=== PATIENT | male | born 1980 | race Caucasian/White ===

== ENCOUNTER 2021-09-14 10:04 | Emergency (ER) | payer OTHER ==
--- NOTE | 2021-09-14 10:30 | ED Physician Documentation ---
PD HPI UPPER EXT INJURY - Stated complaint Stated Complaint: L HAND INJ,LAC - Chief complaint Chief Complaint: Laceration - History obtained from History obtained from: Patient - History of Present Illness Location: Left, Hand (thenar area) Type of injury: Laceration (accidental slice with knife while cutting rope at work. Lac to the left thenar area. Pain with thumb abduction and flexion, but able to. 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 No: Numbness Similar symptoms before: Has not had sx before Recently seen: Not recently seen Review of Systems Skin: reports: Laceration (s) Neurologic: reports: Focal weakness (feels slight weak but mostly hurting with some thumb movement.). denies: Numbness PD PAST MEDICAL HISTORY - Past Medical History Past Medical History: No - Past Surgical History Past Surgical History: No - Present Medications Home Medications: Ambulatory Orders Medication Instructions Recorded Confirmed No Known Home Medications 09/14/21 09/14/21 - Allergies Allergies/Adverse Reactions: Allergies Allergy/AdvReac Type Severity Reaction Status Date / Time No Known Drug Allergies Allergy Verified 09/14/21 10:17 - Social History Does the pt smoke?: No Smoking Status: Never smoker Does the pt drink ETOH?: Yes ETOH Use: Beer Does the pt have substance abuse?: No - Immunizations Immunizations are current?: No PD ED PE NORMAL - Vitals Vital signs reviewed: Yes - General General: Alert and oriented X 3, No acute distress, Well developed/nourished - Derm Derm: Normal color, Warm and dry - Extremities Extremities: Other - Neuro Neuro: Alert and oriented X 3, No motor deficit (he has movement of thumb in all directions. Pains with abduction and flexion. Normal sensation, color and cap refill. ), No sensory deficit, Normal speech Results - Vitals Vitals: Vital Signs - 24 hr 09/14/21 09/14/21 10:09 11:45 Temperature 36.5 C 36.7 C Heart Rate 81 80 Respiratory 16 16 Rate Blood Pressure 144/94 H 140/78 H O2 Saturation 95 96 Oxygen O2 Source Room air Procedures - Laceration (location) left thenar area base of thumb Length in cm: 4 Wound type: Linear, Into muscle, Clean Neurovascular status: Sensory intact, Motor intact, Vascular intact Tendon involvement: Tendon intact Anesthesia: Marcaine 0.5% Wound preparation: Irrigated copiously NS, Wound explored, To the base Deep layer closure: Vicryl, size #-0 - enter number (4), # sutures - enter number (2) Skin layer closure: Nylon, Running, Size #-0 - enter number (4), Sutures - enter # (9) Other: Patient tolerated well, No complications, Neurovascular intact, Dressing applied, Tetanus UTD PD MEDICAL DECISION MAKING - ED course Complexity details: considered differential (thumb lac at thenar area. Just to muscle level and hurts with movement. Can provide splint for thumb to protect as healing. ), d/w patient Departure - Departure Disposition: 01 Home, Self Care Clinical Impression: Hand laceration Qualifiers: Encounter type: initial encounter Foreign body presence: without foreign body Laterality: left Qualified Code(s): S61.412A - Laceration without foreign body of left hand, initial encounter Condition: Stable Record reviewed to determine appropriate education?: Yes Instructions: ED Laceration Hand Print Language: Prydeinig Comments: It is okay to wash and shower. Clean off the wound twice a day with soap and water, or peroxide and water. Apply some antibiotic ointment to it to keep it moist. Also to watch for signs of infection such as purulence, redness or increasing pain. Return to your primary care or the ER at the specified time for suture removal. Suture removal 10 to 14 days. Use the thumb and wrist splint when working or activity to protect movement of the thumb as it does look like you just mildly cut into the muscle in that area. This should heal with being just protected and time. Simple use of the thumb and hand are okay but use the splint to protect it when being more active. Tylenol ibuprofen if needed for pains. Forms: Activity restrictions Discharge Date/Time: 09/14/21 11:45
[2021-09-14] MEDS: LIDOCAINE 1%-EPI 1:100000 20 ML MDV SUBQ STA (10:40)
[2021-09-14] MEDS: IBUPROFEN 600 MG TABLET PO STA (11:21)
[2021-09-14 11:54] VITALS: BP 140/78
== END 2021-09-14 11:45 | disposition home or self-care (01) ==
LOC: ED 10:04
DX: S61.412A Laceration without foreign body of left hand, initial encounter (principal); W26.0XXA Contact with knife, initial encounter; Y99.0 Civilian activity done for income or pay
CPT/HCPCS: 12002; 99282; A9270

== ENCOUNTER 2021-10-01 10:02 | Emergency (ER) | payer OTHER ==
[2021-10-01 10:06] VITALS: BP 134/88
--- NOTE | 2021-10-01 10:24 | ED Physician Documentation ---
History of Present Illness - Stated complaint Stated Complaint: LT HAND STITCH REMOVAL - Chief complaint Chief Complaint: General - History obtained from History obtained from: Patient - Additonal information Additional information: 9 sutures placed in the left hand September 14. Here simply for suture removal. No complaints or issues or healing problems. PD PAST MEDICAL HISTORY - Past Surgical History Past Surgical History: No - Present Medications Home Medications: Ambulatory Orders Medication Instructions Recorded Confirmed No Known Home Medications 09/14/21 10/01/21 - Allergies Allergies/Adverse Reactions: Allergies Allergy/AdvReac Type Severity Reaction Status Date / Time No Known Drug Allergies Allergy Verified 10/01/21 10:06 - Social History Does the pt smoke?: No Smoking Status: Never smoker Does the pt drink ETOH?: Yes Does the pt have substance abuse?: No - Immunizations Immunizations are current?: No PD ED PE NORMAL - Vitals Vital signs reviewed: Yes - General General: Alert and oriented X 3, No acute distress - Extremities Extremities: Other (Healing incision the left hand and thenar musculature with a running suture in place. No dehiscence or signs of infection. Sutures removed without issue during exam and a bandage was placed.) - Neuro Neuro: Alert and oriented X 3, Normal speech Results - Vitals Vitals: Vital Signs - 24 hr 10/01/21 10:05 Temperature 36.0 C L Heart Rate 63 Respiratory 16 Rate Blood Pressure 134/88 H O2 Saturation 100 Oxygen O2 Source Room air Departure - Departure Disposition: 01 Home, Self Care Clinical Impression: Visit for suture removal Condition: Stable
== END 2021-10-01 10:34 | disposition home or self-care (01) ==
LOC: ED 10:02
DX: S61.412D Laceration without foreign body of left hand, subsequent encounter (principal); X58.XXXA Exposure to other specified factors, initial encounter

== ENCOUNTER 2022-07-12 17:22 | Inpatient (IN) | payer SELFPAY ==
[2022-07-12 18:22] LABS: BASOPHILS % (AUTO) 0.3 %; EOSINOPHILS # (AUTO) 0.1 10^3/uL (0.0-0.7); EOSINOPHILS % (AUTO) 0.5 %; HCT - HEMATOCRIT 48.9 % (42.0-52.0); HGB - HEMOGLOBIN 16.9 g/dL (14.0-18.0); LYMPHOCYTES # (AUTO) 0.5 10^3/uL (1.5-3.5); LYMPHOCYTES % (AUTO) 5.1 %; MEAN CORPUSCULAR HGB CONC 34.6 g/dL (32.0-36.0); MEAN CORPUSCULAR VOLUME 95.5 fL (80.0-94.0); MEAN PLATELET VOLUME 10.8 fL (7.4-11.4); MONOCYTES # (AUTO) 0.5 10^3/uL (0.0-1.0); MONOCYTES % (AUTO) 4.9 %; NEUTROPHILS # (AUTO) 8.7 10^3/uL (1.5-6.6); PLT - PLATELET COUNT 143 10^3/uL (130-450); RED BLOOD COUNT 5.12 10^6/uL (4.70-6.10); RED CELL DISTRIBUTION WIDTH 11.7 % (12.0-15.0); WHITE BLOOD COUNT 9.8 x10^3/uL (4.8-10.8)
[2022-07-12 18:35] LABS: ALBUMIN 4.3 g/dL (3.2-5.5); ALBUMIN/GLOBULIN RATIO 1.1 (1.0-2.2); BILIRUBIN,TOTAL 1.2 mg/dL (0.2-1.0); CALCIUM 9.5 mg/dL (8.5-10.3); CREATININE 0.8 mg/dL (0.6-1.2); POTASSIUM 3.7 mmol/L (3.5-5.0); TOTAL PROTEIN 8.1 g/dL (6.7-8.2)
[2022-07-12] MEDS ORDERED: iohexoL-300 100 ML VIAL ONE (19:03)
[2022-07-12] MEDS ORDERED: ONDANSETRON 4 MG/2 ML VIAL IVP STA (19:05)
[2022-07-12] MEDS ORDERED: HYDROmorphone 1 MG/ML CARPUJECT IVP STA (19:05)
[2022-07-12] MEDS ORDERED: SODIUM CHLORIDE 0.9% 1,000 ML IV STA (19:05)
--- NOTE | 2022-07-12 19:36 | ED Physician Documentation ---
History of Present Illness - Stated complaint Stated Complaint: ABD PX - Chief complaint Chief Complaint: Abd Pain - History obtained from History obtained from: Patient, Family - History of Present Illness Pain level max: 9 Pain level now: 9 - Additonal information Additional information: 41-year-old Uzbek-speaking male presents to the emergency department with his family. He started having abdominal pain yesterday, nausea, vomiting last night. Has not had a bowel movement today. He states he has not urinated much. He complains of diffuse abdominal pain. He usually drinks a sixpack of beers per night. He is not on any medications at home. There has been no blood in the emesis. No fevers. No chills. Nothing makes it better or worse. marking clerk was used for all interactions. Review of Systems Constitutional: denies: Fever Cardiac: denies: Chest pain / pressure, Palpitations Respiratory: denies: Cough GI: denies: Vomiting PD PAST MEDICAL HISTORY - Past Medical History Past Medical History: No - Past Surgical History Past Surgical History: No - Present Medications Home Medications: Ambulatory Orders Medication Instructions Recorded Confirmed No Known Home Medications 09/14/21 10/01/21 - Allergies Allergies/Adverse Reactions: Allergies Allergy/AdvReac Type Severity Reaction Status Date / Time No Known Drug Allergies Allergy Verified 07/12/22 17:54 - Living Situation Living Situation: reports: With family Living Arrangement: reports: At home - Social History Does the pt smoke?: No Smoking Status: Never smoker Does the pt drink ETOH?: Yes ETOH Use: Beer Does the pt have substance abuse?: No - Immunizations Immunizations are current?: No PD ED PE NORMAL - Vitals Vital signs reviewed: Yes - General General: Alert and oriented X 3, No acute distress - HEENT HEENT: PERRL, Moist mucous membranes - Neck Neck: Supple, no meningeal sign - Cardiac Cardiac: RRR, No murmur - Respiratory Respiratory: No respiratory distress, Clear bilaterally - Abdomen Abdomen: Other (Diffusely tender to palpation. Positive rebound and guarding.) - Back Back: No CVA TTP, No spinal TTP - Derm Derm: Warm and dry, No rash - Extremities Extremities: No edema, No calf tenderness / cord - Neuro Neuro: Alert and oriented X 3 - Psych Psych: Normal mood, Normal affect Results - Vitals Vitals: Vital Signs - 24 hr 07/12/22 07/12/22 07/12/22 17:51 19:55 20:51 Temperature 37.4 C 37.3 C Heart Rate 77 88 81 Respiratory 18 18 18 Rate Blood Pressure 143/90 H 116/75 122/82 H O2 Saturation 99 99 99 Oxygen O2 Source Room air - Labs Labs: Laboratory Tests 07/12/22 07/12/22 07/12/22 18:15 18:15 19:59 WBC 9.8 RBC 5.12 Hgb 16.9 Hct 48.9 MCV 95.5 H MCH 33.0 H MCHC 34.6 RDW 11.7 L Plt Count 143 MPV 10.8 Neut # (Auto) 8.7 H Lymph # (Auto) 0.5 L [place] # (Auto) 0.5 Eos # (Auto) 0.1 Baso # (Auto) 0.0 Absolute Nucleated RBC 0.00 Nucleated RBC % 0.0 Sodium 136 Potassium 3.7 Chloride 98 L Carbon Dioxide 29 Anion Gap 9.0 BUN 8 Creatinine 0.8 Estimated GFR (MDRD) 106 Glucose 118 H Calcium 9.5 Total Bilirubin 1.2 H AST 20 ALT 24 Alkaline Phosphatase 79 Total Protein 8.1 Albumin 4.3 Globulin 3.8 Albumin/Globulin Ratio 1.1 Lipase 35 SARS-CoV-2 (PCR) NOT DETECTED - Rads (name of study) CT abdomen pelvis Radiology: Final report received, See rad report PD Medical Decision Making - ED course Complexity details: reviewed results, re-evaluated patient, considered differential, d/w patient, d/w family, d/w webmethods consultant Reviewed Lab Results: CBC and ER abdominal panel did not show any significant abnormalities. ED course: CT abdomen pelvis shows an acute appendicitis, possible perforation. Discussed the case with Dr. Jeffers, general surgery on-call. He came and evaluated the patient in the emergency department. We reviewed the results. He will take the patient to the operating room for appendicitis. IV Zosyn given. IV Dilaudid given. Pain well controlled. This document was made in part using voice recognition software. While efforts are made to proofread this document, sound alike and grammatical errors may occur. Departure - Departure Disposition: ED Transfer to [facility] Clinical Impression: Perforated appendicitis Condition: Stable
[2022-07-12] MEDS ORDERED: PIPERACILLIN/TAZOBACTAM 3.375 GM in SODIUM CHLORIDE 0.9% MINIBAG 100 ML IV STA (19:41)
[2022-07-12] MEDS ORDERED: iohexoL-300 100 ML VIAL IVP ONE (19:50)
--- NOTE | 2022-07-12 20:05 | CT Report ---
PROCEDURE: ABDOMEN/PELVIS W INDICATIONS: diffuse abd pain x24 hours CONTRAST: 100 ML OMNI 300 TECHNIQUE: After the administration of intravenous contrast, 5 mm thick sections acquired from the diaphragms to the symphysis. 5 mm thick coronal and sagittal reformats were acquired. For radiation dose reducti on, the following was used: automated exposure control, adjustment of mA and/or kV according to alicia ent size. COMPARISON: None. FINDINGS: Included portion of the lung bases clear. Normal CT appearance of the liver, spleen, gallbladder, luu creas, adrenal glands, and kidneys. Dilated and fluid-filled appendix with diffuse wall thickening and adjacent inflammatory changes. The re is also significant free fluid adjacent to the appendix and in the retrovesical space. Findings ar e consistent with appendicitis and may represent ruptured appendicitis. Bowel is otherwise normal. No acute osseous finding. IMPRESSION: Acute appendicitis with possible ruptured appendicitis. Reviewed by: Jamie Singer MD on 07/12/2022 8:04 PM PST Approved by: Jamie Singer MD on 07/12/2022 8:04 PM PST Station ID: [id number]
--- NOTE | 2022-07-12 20:54 | ANESTHESIA ---
Pre-Anesthesia VS, & Labs - Diagnosis acute appendicitis/ruptured appendix - Procedure lap appy Vital Signs: Temp Pulse Resp BP Pulse Ox O2 Flow Rate 37.3 C 81 18 122/82 H 99 07/12/22 19:55 07/12/22 20:51 07/12/22 20:51 07/12/22 20:51 07/12/22 20:51 Height: 5 ft 8 in Weight (kg): 75.75 kg Body Mass Index: 25.4 BMI Classification: Overweight - NPO >8 hours Last Food Intake: potatoes at 1pm - Lab Results Current Lab Results: Laboratory Tests 07/12/22 18:15: Sodium 136, Potassium 3.7, Chloride 98 L, Carbon Dioxide 29, Anion Gap 9.0, BUN 8, Creatinine 0.8, Estimated GFR (MDRD) 106, Glucose 118 H, Calcium 9.5, Total Bilirubin 1.2 H, AST 20, ALT 24, Alkaline Phosphatase 79, Total Protein 8.1, Albumin 4.3, Globulin 3.8, Albumin/Globulin Ratio 1.1, Lipase 35 07/12/22 18:15: WBC 9.8, RBC 5.12, Hgb 16.9, Hct 48.9, MCV 95.5 H, MCH 33.0 H, MCHC 34.6, RDW 11.7 L, Plt Count 143, MPV 10.8, Neut # (Auto) 8.7 H, Lymph # (Auto) 0.5 L, [place] # (Auto) 0.5, Eos # (Auto) 0.1, Baso # (Auto) 0.0, Absolute Nucleated RBC 0.00, Nucleated RBC % 0.0 Lab results reviewed: Yes Fish Bones: 07/12/22 18:15 07/12/22 18:15 Home Medications and Allergies Active Medications Sodium Chloride (Normal Saline 0.9%) 1,000 mls @ 150 mls/hr IV .Q6H40M STA Stop: 07/13/22 01:44 Last Infusion: 07/12/22 20:31 Dose: 150 mls/hr No Known Home Medications 09/14/21 Allergies/Adverse Reactions: Allergies Allergy/AdvReac Type Severity Reaction Status Date / Time No Known Drug Allergies Allergy Verified 07/12/22 17:54 Anes History & Medical History - Anesthetic History Family history of Anesthesia Complications: Denies Family history of Malignant Hyperthermia: Denies - Medical History Cardiovascular: reports: None Pulmonary: reports: None Gastrointestinal: reports: None Urinary: reports: None Neuro: reports: None Musculoskeletal: reports: None Endocrine/Autoimmune: reports: None Blood Disorders: reports: None Skin: reports: None Smoking Status: Never smoker Psychosocial: reports: Alcohol (drinks beer daily) History of Cancer?: No Other Past Medical History: ETOH abuse Exam General: Alert, Oriented x3, Cooperative, No acute distress Dental: Poor dentition (prominent incisors) Mouth Openin Fingerbreadth Neck Mobility: Normal Mallampati classification: II Thyromental Distance: 4-6 cm Mental/Cognitive Status: Alert/Oriented X3, Normal for patient Plan Anesthesia Type: General Consent for Procedure(s) Verified and Reviewed: Yes Code Status: Attempt Resuscitation ASA classification: 2-Mild systemic disease Is this case an emergency?: Yes
--- NOTE | 2022-07-12 21:24 | HISTORY & PHYSICAL EXAMINATION ---
Chief Complaint - Chief Complaint Chief Complaint: abdominal pain History of Present Illness - Admitted From Admitted From:: ED - History Obtained From Records Reviewed: yes History obtained from: pt Exam Limitations: drift miner used - History of Present Illness HPI Comment/Other: abdominal pain and nausea/ vomiting for 36 hours History - Past Medical History Cardiovascular: reports: None Respiratory: reports: None Neuro: reports: None Endocrine/Autoimmune: reports: None GI: reports: None : reports: None Musculoskeletal: reports: None Derm: reports: None MRSA Hx?: No Other Past Medical History: ETOH abuse - Family & Social History Living arrangement: At home Living Situation: With family Meds/Allgy - Home Medications Home Medications: Ambulatory Orders Medication Instructions Recorded Confirmed No Known Home Medications 09/14/21 10/01/21 - Allergies Allergies/Adverse Reactions: Allergies Allergy/AdvReac Type Severity Reaction Status Date / Time No Known Drug Allergies Allergy Verified 07/12/22 17:54 Review of Systems - Other Findings Other Findings: 10 pt ros as above otherwise unremarkable Exam - Vital Signs Reviewed Vital Signs: Yes Vital Signs: Vital Signs x48h Temp Pulse Resp BP Pulse Ox 07/12/22 20:51 81 18 122/82 H 99 07/12/22 19:55 37.3 C 88 18 116/75 99 07/12/22 17:51 37.4 C 77 18 143/90 H 99 - Physical Exam General Appearance: positive: Alert, Mild distress Eyes Bilateral: positive: PERRL, EOMI ENT: positive: No signs of dehydration Neck: positive: No JVD, Trachea midline Respiratory: positive: No respiratory distress, Breath sounds nml Cardiovascular: positive: Regular rate & rhythm Abdomen: positive: Other (diffuse tenderness more in the right lower quadrant with peritoneal signs present) Neurologic/Psychiatric: positive: Oriented x3 Conclusion/Plan - Problem List (1) Perforated appendicitis Conclusion/Plan: plan appendectomy. parq held and consent obtained. drift miner service used and discussed thoroughly - Lab Results Lab results reviewed: Yes Fish Bones: 07/12/22 18:15 07/12/22 18:15
[2022-07-12] MEDS ORDERED: BUPIVACAINE 0.25% PF 30 ML VIAL ONE (21:39)
[2022-07-12] MEDS ORDERED: HYDROmorphone 0.5 MG/0.5 ML SYRINGE IVP PRN (21:43)
[2022-07-12] MEDS ORDERED: fentaNYL 100 MCG/2 ML VIAL IVP PRN (21:43)
[2022-07-12] MEDS ORDERED: ONDANSETRON 4 MG/2 ML VIAL IVP PRN (21:43)
[2022-07-12] MEDS ORDERED: ATROPINE ABBOJECT 1 MG/10 ML SYRINGE IVP PRN (21:43)
[2022-07-12] MEDS ORDERED: MORPHINE 2 MG/ML CARPUJECT IVP PRN (21:43)
[2022-07-12] MEDS ORDERED: NALOXONE 0.4 MG/ML VIAL IVP PRN (21:43)
[2022-07-12] MEDS ORDERED: BUPIVACAINE 0.25% PF 30 ML VIAL SUBQ ONE (21:57)
[2022-07-12] MEDS ORDERED: LACTATED RINGERS 1,000 ML IV SCH (22:00)
[2022-07-12] MEDS ORDERED: LACTATED RINGERS 350 ML IV ONE (22:46)
--- NOTE | 2022-07-12 22:52 | OPERATIVE REPORT ---
Operative Report - General Procedure Date: 07/12/22 Planned Procedure: appendectomy and drain placement Pre-Op Diagnosis: appendicitis with peritonitis and free fluid Procedure Performed: laparoscopic appendectomy and drain placement Post Op Diagnosis: suppurative appendicits and 50 ml purulent fluid in abdomen - Procedure Note Primary Surgeon: jo-ann morrell Anesthesia Technique: General ET tube, Local Pathology: appendix Estimated Blood Loss (mL): 2 Drain/Tube Type: Tomy Duran drain Indications: appendicitis with peritonitis Findings: as above Complications: none - Other Other Information/Narrative: The patient was properly identified brought to the operating room and placed in supine position. The patient was previously given antibiotics. Sequential compression devices were placed. General endotracheal anesthesia was induced. The patient was prepped and draped in a sterile fashion. Local anesthetic was given to incision areas. An infraumbilical incision was made in and proceeded down to the fascia. The fascia was incised lifted upwards and abdomen entered with a Veress needle. CO2 was insufflated to a pressure of 15. A 12 mm trocar was placed with 30 degree scope. There was no evidence of injury from Veress needle or trocar placement. Under direct vision a 5 mm trocar was placed suprapubic and a 5 mm trocar was placed in the right upper quadrant. Approximately 50 ml green thick purulent fluid was present. Appendix was identified and retracted anteriorly. Peritoneal attachments were taken down with careful use of cautery. Appendix was mobilized more anterior. A plane was then created between the mesoappendix and the appendix at the cecum. Appendix was divided with an Endo JUAN LUIS intestinal load to include up a small portion of the cecum. The mesoappendix was then divided with an Endo JUAN LUIS vascular load. There was secure closure at the cecum and hemostasis was assured. The appendix was brought out. The abdomen was thoroughly irrigated and hemostasis again assured. A 15 round inessa drain was placed and brought out through the suprapubic trochar site. It was secured with a 3O nylon. Trochars were removed under direct vision. Fascia at the infraumbilical site was closed with a running 0 Vicryl suture. Subcutaneous tissue was irrigated and skin loosely reapproximated with buried interrupted 4-0 Monocryl at the umbilicus. Dressings were applied. The patient tolerated the procedure well was awakened and brought to recovery in good condition.
--- NOTE | 2022-07-12 23:08 | ANESTHESIA POST OP EVALUATION ---
Anesthesia Post Eval - Post Anesthesia Eval Vitals: Last Vital Signs Temp 37.2 C 07/12/22 23:05 Pulse 72 07/12/22 23:05 Resp 16 07/12/22 23:05 BP 118/80 07/12/22 23:05 Pulse Ox 95 07/12/22 23:05 O2 Flow Rate CV Function Including HR & BP: Stable Pain Control: Satisfactory Nausea & Vomiting: Negative Mental Status: Baseline Respiratory Status: Airway Patent Hydration Status: Satisfactory Anesthesia Complications: None
[2022-07-12] MEDS: D5.45NS W/20 MEQ KCL 1,000 ML IV SCH (23:57)
[2022-07-13] MEDS: HYDROcod/ACETAM 5/325 MG TABLET PO PRN ×5 (02:34→18:56)
[2022-07-13] MEDS: PIPERACILLIN/TAZOBACTAM 3.375 GM in SODIUM CHLORIDE 0.9% MINIBAG 100 ML IV SCH ×4 (02:37→20:00)
[2022-07-13 04:32] LABS: BILIRUBIN,URINE NEGATIVE (NEGATIVE); GLUCOSE, URINE (UA) 100 mg/dL (NEGATIVE); KETONES,URINE (UA) NEGATIVE (NEGATIVE); LEUKOCYTE ESTERASE, URINE NEGATIVE (NEGATIVE); NITRITE,URINE NEGATIVE (NEGATIVE); OCCULT BLOOD,URINE NEGATIVE (NEGATIVE); PROTEIN,URINE NEGATIVE (NEGATIVE); UROBILINOGEN,URINE 0.2 (NORMAL) E.U./dL (NORMAL)
[2022-07-13 04:35] LABS: CLARITY,URINE CLEAR (CLEAR)
[2022-07-13] MEDS: D5.45NS W/20 MEQ KCL 1,000 ML IV SCH ×2 (09:19→17:35)
--- NOTE | 2022-07-13 09:37 | PROVIDER PROGRESS NOTE ---
Subjective - Subjective Pt reports feeling: Improved (pain much improved tapia placed overnight for urinary retention) Objective - Vital Signs/Intake & Output Vital Signs: Vital Signs x48h Temp Pulse Resp BP Pulse Ox 07/13/22 09:11 36.9 C 60 16 105/73 97 07/13/22 05:21 60 102/68 97 07/13/22 04:21 54 L 106/66 96 07/13/22 03:21 62 114/72 96 07/13/22 02:21 37.0 C 65 16 129/86 H 96 Intake & Output: Intake & Output 07/10/22 07/11/22 07/12/22 07/13/22 23:59 23:59 23:59 23:59 Intake Total 1100 1200 Output Total 3545 Balance 1100 -2345 - Objective General Appearance: positive: No acute distress, Alert Eyes Bilateral: positive: PERRL, EOMI Respiratory: positive: No respiratory distress Abdomen: positive: Non-tender, No distention Neurologic/Psychiatric: positive: Oriented x3 - Lab Results Fish Bones: 07/12/22 18:15 07/12/22 18:15 Other Labs: Lab Results x24hrs 07/13/22 07/12/22 07/12/22 Range/Units 04:20 19:59 18:15 WBC (4.8-10.8) x10^3/uL RBC (4.70-6.10) 10^6/uL Hgb (14.0-18.0) g/dL Hct (42.0-52.0) % MCV (80.0-94.0) fL MCH (27.0-31.0) pg MCHC (32.0-36.0) g/dL RDW (12.0-15.0) % Plt Count (130-450) 10^3/uL MPV (7.4-11.4) fL Neut # (Auto) (1.5-6.6) 10^3/uL Lymph # (Auto) (1.5-3.5) 10^3/uL [place] # (Auto) (0.0-1.0) 10^3/uL Eos # (Auto) (0.0-0.7) 10^3/uL Baso # (Auto) (0.0-0.1) 10^3/uL Absolute Nucleated RBC x10^3/uL Nucleated RBC % /100WBC Sodium 136 (135-145) mmol/L Potassium 3.7 (3.5-5.0) mmol/L Chloride 98 L (101-111) mmol/L Carbon Dioxide 29 (21-32) mmol/L Anion Gap 9.0 (6-13) BUN 8 (6-20) mg/dL Creatinine 0.8 (0.6-1.2) mg/dL Estimated GFR (MDRD) 106 (>89) Glucose 118 H (70-100) mg/dL Calcium 9.5 (8.5-10.3) mg/dL Total Bilirubin 1.2 H (0.2-1.0) mg/dL AST 20 (10-42) IU/L ALT 24 (10-60) IU/L Alkaline Phosphatase 79 (42-121) IU/L Total Protein 8.1 (6.7-8.2) g/dL Albumin 4.3 (3.2-5.5) g/dL Globulin 3.8 (2.1-4.2) g/dL Albumin/Globulin Ratio 1.1 (1.0-2.2) Lipase 35 (22-51) U/L Urine Color YELLOW Urine Clarity CLEAR (CLEAR) Urine pH 7.0 (5.0-7.5) PH Ur Specific [place] <=1.005 (1.002-1.030) Urine Protein NEGATIVE (NEGATIVE) mg/dL Urine Glucose (UA) 100 H (NEGATIVE) mg/dL Urine Ketones NEGATIVE (NEGATIVE) mg/dL Urine Occult Blood NEGATIVE (NEGATIVE) Urine Nitrite NEGATIVE (NEGATIVE) Urine Bilirubin NEGATIVE (NEGATIVE) Urine Urobilinogen 0.2 (NORMAL) (NORMAL) E.U./dL Ur Leukocyte Esterase NEGATIVE (NEGATIVE) Ur Microscopic Review NOT INDICATED Urine Culture Comments NOT INDICATED SARS-CoV-2 (PCR) NOT DETECTED 07/12/22 Range/Units 18:15 WBC 9.8 (4.8-10.8) x10^3/uL RBC 5.12 (4.70-6.10) 10^6/uL Hgb 16.9 (14.0-18.0) g/dL Hct 48.9 (42.0-52.0) % MCV 95.5 H (80.0-94.0) fL MCH 33.0 H (27.0-31.0) pg MCHC 34.6 (32.0-36.0) g/dL RDW 11.7 L (12.0-15.0) % Plt Count 143 (130-450) 10^3/uL MPV 10.8 (7.4-11.4) fL Neut # (Auto) 8.7 H (1.5-6.6) 10^3/uL Lymph # (Auto) 0.5 L (1.5-3.5) 10^3/uL [place] # (Auto) 0.5 (0.0-1.0) 10^3/uL Eos # (Auto) 0.1 (0.0-0.7) 10^3/uL Baso # (Auto) 0.0 (0.0-0.1) 10^3/uL Absolute Nucleated RBC 0.00 x10^3/uL Nucleated RBC % 0.0 /100WBC Sodium (135-145) mmol/L Potassium (3.5-5.0) mmol/L Chloride (101-111) mmol/L Carbon Dioxide (21-32) mmol/L Anion Gap (6-13) BUN (6-20) mg/dL Creatinine (0.6-1.2) mg/dL Estimated GFR (MDRD) (>89) Glucose (70-100) mg/dL Calcium (8.5-10.3) mg/dL Total Bilirubin (0.2-1.0) mg/dL AST (10-42) IU/L ALT (10-60) IU/L Alkaline Phosphatase (42-121) IU/L Total Protein (6.7-8.2) g/dL Albumin (3.2-5.5) g/dL Globulin (2.1-4.2) g/dL Albumin/Globulin Ratio (1.0-2.2) Lipase (22-51) U/L Urine Color Urine Clarity (CLEAR) Urine pH (5.0-7.5) PH Ur Specific [place] (1.002-1.030) Urine Protein (NEGATIVE) mg/dL Urine Glucose (UA) (NEGATIVE) mg/dL Urine Ketones (NEGATIVE) mg/dL Urine Occult Blood (NEGATIVE) Urine Nitrite (NEGATIVE) Urine Bilirubin (NEGATIVE) Urine Urobilinogen (NORMAL) E.U./dL Ur Leukocyte Esterase (NEGATIVE) Ur Microscopic Review Urine Culture Comments SARS-CoV-2 (PCR) Assessment/Plan - Problem List (1) Perforated appendicitis Impression: much improved. tapia placed for large volume urinary retention diet clears d/c tapia 07/14 advance diet 07/14 as tolerated d/c drain prior to d/c home if minimal and clear dry dressing changes daily and prn
[2022-07-13] MEDS: HYDROmorphone 0.5 MG/0.5 ML SYRINGE IVP PRN ×3 (14:16→21:53)
[2022-07-13] MEDS: LORazepam 1 MG TABLET PO PRN ×2 (16:14→21:55)
[2022-07-13] MEDS: ONDANSETRON 4 MG/2 ML VIAL IVP PRN ×2 (16:14→21:57)
[2022-07-13] MEDS ORDERED: D5.45NS W/20 MEQ KCL 1,000 ML IV SCH (23:03)
[2022-07-14] MEDS: HYDROmorphone 0.5 MG/0.5 ML SYRINGE IVP PRN ×3 (01:04→06:43)
[2022-07-14] MEDS: HYDROcod/ACETAM 5/325 MG TABLET PO PRN (01:27)
[2022-07-14] MEDS: PIPERACILLIN/TAZOBACTAM 3.375 GM in SODIUM CHLORIDE 0.9% MINIBAG 100 ML IV SCH ×4 (01:30→20:11)
[2022-07-14] MEDS: LORazepam 1 MG TABLET PO PRN (06:48)
[2022-07-14] MEDS: ONDANSETRON 4 MG/2 ML VIAL IVP PRN (06:48)
[2022-07-14] MEDS ORDERED: D5.45NS W/20 MEQ KCL 1,000 ML IV SCH (09:39)
[2022-07-14 10:28] LABS: HCT - HEMATOCRIT 51.2 % (42.0-52.0); HGB - HEMOGLOBIN 17.4 g/dL (14.0-18.0); MEAN CORPUSCULAR HEMOGLOBIN 33.1 pg (27.0-31.0); MEAN CORPUSCULAR VOLUME 97.5 fL (80.0-94.0); MEAN PLATELET VOLUME 11.5 fL (7.4-11.4); RED BLOOD COUNT 5.25 10^6/uL (4.70-6.10); RED CELL DISTRIBUTION WIDTH 11.9 % (12.0-15.0); WHITE BLOOD COUNT 13.2 x10^3/uL (4.8-10.8)
[2022-07-14 10:37] LABS: CALCIUM 8.9 mg/dL (8.5-10.3); CREATININE 0.9 mg/dL (0.6-1.2); MAGNESIUM 2.2 mg/dL (1.7-2.8); PHOSPHORUS 3.5 mg/dL (2.5-4.6)
[2022-07-14] MEDS: MULTIVITAMIN 10 ML, THIAMINE INJ 100 MG, FOLIC ACID INJ 1 MG in SODIUM CHLORIDE 0.9% 1,... IV SCH (11:10)
[2022-07-14] MEDS: PRENATAL VITAMIN TABLET PO SCH (11:10)
[2022-07-14] MEDS: THIAMINE 100 MG TABLET PO SCH (11:10)
[2022-07-14] MEDS ORDERED: METOCLOPRAMIDE 10 MG/2 ML VIAL IVP PRN ×2 (11:15→11:18)
--- NOTE | 2022-07-14 11:23 | PROVIDER PROGRESS NOTE ---
Subjective - General Admit Date: 07/13/22 Procedure Date: 07/12/22 Post Op Days: 2 Procedure Performed: lap appendectomy and abdominal washout - Review of Systems Wound/Incisions: positive: Dressing dry and intact Drain Type: AMBIKA Drain Output Description: serous, cloudy Approximate mls Output: 318mL since surgery - Other Other Information/Narrative: Patient complains of nausea and bloating this AM. Uncomfortable due to distension. Tapia placed for urinary retention after surgery was removed this AM, he has not voided yet. +flatus. He has not been out of bed except to go to the restroom. Several episodes of emesis overnight. Patient endorses drinking 6 beers per day and states he sometimes gets "shaky" if he doesn't drink. Objective - Patient Data Reviewed Vital Signs: Yes Vital Signs: Vital Signs x48h Temp Pulse Resp BP Pulse Ox 07/14/22 08:35 37.0 C 84 18 151/116 H 96 07/14/22 07:03 87 157/118 H 07/14/22 05:00 83 16 159/114 H 95 Weight: Weight 07/12/22 07/13/22 07/14/22 23:59 23:59 23:59 Weight (kg) 75.75 kg Intake & Output: Intake and Output Totals x24h 07/12/22 07/13/22 07/14/22 23:59 23:59 23:59 Intake Total 1100 3304.167 1095.833 Output Total 4776 830 Balance 1100 -1471.833 265.833 - Lab Results Lab Results: 07/14/22 09:55 07/14/22 09:55 Other Lab Results: Lab Results x24hrs 07/14/22 07/14/22 Range/Units 09:55 09:55 WBC 13.2 H (4.8-10.8) x10^3/uL RBC 5.25 (4.70-6.10) 10^6/uL Hgb 17.4 (14.0-18.0) g/dL Hct 51.2 (42.0-52.0) % MCV 97.5 H (80.0-94.0) fL MCH 33.1 H (27.0-31.0) pg MCHC 34.0 (32.0-36.0) g/dL RDW 11.9 L (12.0-15.0) % Plt Count 163 (130-450) 10^3/uL MPV 11.5 H (7.4-11.4) fL Sodium 133 L (135-145) mmol/L Potassium 4.0 (3.5-5.0) mmol/L Chloride 100 L (101-111) mmol/L Carbon Dioxide 22 (21-32) mmol/L Anion Gap 11.0 (6-13) BUN 12 (6-20) mg/dL Creatinine 0.9 (0.6-1.2) mg/dL Estimated GFR (MDRD) 92 (>89) Glucose 166 H (70-100) mg/dL Calcium 8.9 (8.5-10.3) mg/dL Phosphorus 3.5 (2.5-4.6) mg/dL Magnesium 2.2 (1.7-2.8) mg/dL - Current Medications Current Medications: Current Medications Generic Name Dose Route Start Last Admin Trade Name Freq PRN Reason Stop Dose Admin Hydrocodone Bitart/Acetaminophen 1 tab 07/12/22 22:42 07/14/22 01:27 Hydrocod/Acetam 5/325 Mg Tablet PO 1 tab Q4HR PRN Administration PAIN Hydromorphone HCl 0.5 mg 07/12/22 22:42 07/14/22 06:43 Hydromorphone 0.5 Mg/0.5 Ml Syringe IVP 0.5 mg Q30M PRN Administration Breakthrough Pain Piperacillin Sod/Tazobactam 100 mls @ 200 mls/hr 07/13/22 02:00 07/14/22 09:30 Sod 3.375 gm/ Sodium Chloride IV Infused Q6H LASHAY Infusion Multivitamins 10 ml/ Thiamine 1,011.2 mls @ 100 mls/hr 07/14/22 11:00 07/14/22 11:10 HCl 100 mg/ Folic Acid 1 mg/ IV 100 mls/hr Sodium Chloride Q24H LASHAY Administration Lorazepam 1 mg 07/12/22 22:46 07/14/22 06:48 Lorazepam 1 Mg Tablet PO 1 mg Q6H PRN Administration Anxiety Ondansetron HCl 4 mg 07/12/22 22:42 07/14/22 06:48 Ondansetron 4 Mg/2 Ml Vial IVP 4 mg Q6HR PRN Administration Nausea / Vomiting Multivit/Folic Acid/Iron 1 tab 07/14/22 10:00 07/14/22 11:10 Vitamin Tablet PO 1 tab DAILY LASHAY Administration Thiamine HCl 100 mg 07/14/22 10:00 07/14/22 11:10 Thiamine 100 Mg Tablet PO 100 mg DAILY LASHAY Administration - Physical Exam Wound/Incisions: positive: Dressing dry and intact General Appearance: positive: Mild distress (due to distension) Eyes Bilateral: positive: Normal inspection, PERRL, EOMI ENT: positive: Dry mucous membranes Neck: positive: Trachea midline Respiratory: positive: No respiratory distress, Breath sounds nml Cardiovascular: positive: Regular rate & rhythm, No murmur Abdomen: positive: Tenderness (mild, diffuse), Other (AMBIKA with serous, cloudy output). negative: No distention (severe distension, +tympany), Guarding, Rebound Extremities: positive: Non-tender, Full ROM Neurologic/Psychiatric: positive: Oriented x3 Impression/Plan - Problem List Problem List: 41 y/o M with: 1. perforated appendicitis - s/p lap appy and abd washout 07/12/22, POD#2; on zosyn IV q6h (transition to PO abx when tolerating diet). Leukocytosis due to infectious process and stress response to surgery, will continue to follow - high AMBIKA output expected due to irrigation at the time of surgery. Continue to follow. Keep drain. - Delayed return of bowel function as expected given the extent of infection/inflammation noted at the time of surgery. Increase activity today. - will cointinue zofran, added reglan for n/v. Expect this is due to delayed return of bowel function. If not controlled with meds, patient may require NG tube. - following electrolytes - patient will need to f/u with Dr. Jeffers in clinic two weeks after surgery. 2. urinary retention - due to inflammation in perivesicular location - tapia removed this AM. If unable to void in 6 hours, will bladder scan and consider reinserting tapia if unable to void 3. EtOH use disorder - patient drinks at least 6 beers/day, some tremors when he's stopped in the past - CIWA initiated 4. HTN - likely contributions from discomfort and possible alcohol withdrawal. Continue to follow. I spoke with the patient and his family with the assistance of a video mountain bike guide this AM. I explained the above plan of care and answered their questions.
[2022-07-14] MEDS: SODIUM CHLORIDE 0.9% 1,000 ML IV SCH ×2 (14:44→21:24)
[2022-07-14] MEDS: KETOROLAC 15 MG/ML VIAL IVP PRN (16:01)
[2022-07-15] MEDS: PIPERACILLIN/TAZOBACTAM 3.375 GM in SODIUM CHLORIDE 0.9% MINIBAG 100 ML IV SCH ×4 (01:50→20:09)
--- NOTE | 2022-07-15 06:18 | PROVIDER PROGRESS NOTE ---
Subjective - General Admit Date: 07/13/22 Procedure Date: 07/12/22 Post Op Days: 3 Procedure Performed: lap appendectomy and abdominal washout - Review of Systems Wound/Incisions: positive: Dressing dry and intact Drain Type: AMBIKA Drain Output Description: serous, cloudy Approximate mls Output: 685mL in last 24 hours (23-30mL/hr) - Other Other Information/Narrative: Overall, the patient is feeling better this AM. Patient's nausea/vomiting improving somewhat. He did have an episode of emesis this AM just prior to my visit. +belching. +flatus. He's been up walking some yesterday and states this helped his bloating a lot. Pain controlled with medications. +void, denies f/c. Objective - Patient Data Reviewed Vital Signs: Yes Vital Signs: Vital Signs x48h Temp Pulse Resp BP Pulse Ox 07/15/22 04:39 37.2 C 73 16 164/110 H 97 07/15/22 00:12 37.1 C 77 16 162/106 H 98 Intake & Output: Intake and Output Totals x24h 07/13/22 07/14/22 07/15/22 23:59 23:59 23:59 Intake Total 3304.167 3692.033 318.75 Output Total 4776 1355 310 Balance -4710.960 5544.033 8.75 - Lab Results Lab Results: 07/14/22 09:55 07/14/22 09:55 Other Lab Results: Lab Results x24hrs 07/14/22 07/14/22 Range/Units 09:55 09:55 WBC 13.2 H (4.8-10.8) x10^3/uL RBC 5.25 (4.70-6.10) 10^6/uL Hgb 17.4 (14.0-18.0) g/dL Hct 51.2 (42.0-52.0) % MCV 97.5 H (80.0-94.0) fL MCH 33.1 H (27.0-31.0) pg MCHC 34.0 (32.0-36.0) g/dL RDW 11.9 L (12.0-15.0) % Plt Count 163 (130-450) 10^3/uL MPV 11.5 H (7.4-11.4) fL Sodium 133 L (135-145) mmol/L Potassium 4.0 (3.5-5.0) mmol/L Chloride 100 L (101-111) mmol/L Carbon Dioxide 22 (21-32) mmol/L Anion Gap 11.0 (6-13) BUN 12 (6-20) mg/dL Creatinine 0.9 (0.6-1.2) mg/dL Estimated GFR (MDRD) 92 (>89) Glucose 166 H (70-100) mg/dL Calcium 8.9 (8.5-10.3) mg/dL Phosphorus 3.5 (2.5-4.6) mg/dL Magnesium 2.2 (1.7-2.8) mg/dL AM lab pending - Current Medications Current Medications: Current Medications Generic Name Dose Route Start Last Admin Trade Name Freq PRN Reason Stop Dose Admin Hydrocodone Bitart/Acetaminophen 1 tab 07/12/22 22:42 07/14/22 01:27 Hydrocod/Acetam 5/325 Mg Tablet PO 1 tab Q4HR PRN Administration PAIN Hydromorphone HCl 0.5 mg 07/12/22 22:42 07/14/22 06:43 Hydromorphone 0.5 Mg/0.5 Ml Syringe IVP 0.5 mg Q30M PRN Administration Breakthrough Pain Piperacillin Sod/Tazobactam 100 mls @ 200 mls/hr 07/13/22 02:00 07/15/22 02:20 Sod 3.375 gm/ Sodium Chloride IV Infused Q6H LASHAY Infusion Multivitamins 10 ml/ Thiamine 1,011.2 mls @ 100 mls/hr 07/14/22 11:00 07/14/22 23:22 HCl 100 mg/ Folic Acid 1 mg/ IV Infused Sodium Chloride Q24H LASHAY Infusion Sodium Chloride 1,000 mls @ 125 mls/hr 07/14/22 12:00 07/15/22 04:07 Normal Saline 0.9% IV 125 mls/hr .Q8H LASHAY Infusion Ketorolac Tromethamine 15 mg 07/14/22 13:42 07/14/22 16:01 Ketorolac 15 Mg/Ml Vial IVP 07/17/22 13:41 15 mg Q6HR PRN Administration PAIN Lorazepam 1 mg 07/12/22 22:46 07/14/22 06:48 Lorazepam 1 Mg Tablet PO 1 mg Q6H PRN Administration Anxiety Metoclopramide HCl 10 mg 07/14/22 11:18 07/14/22 13:03 Metoclopramide 10 Mg/2 Ml Vial IVP 10 mg Q6HR PRN Administration Nausea / Vomiting Ondansetron HCl 4 mg 07/12/22 22:42 07/14/22 06:48 Ondansetron 4 Mg/2 Ml Vial IVP 4 mg Q6HR PRN Administration Nausea / Vomiting Multivit/Folic Acid/Iron 1 tab 07/14/22 10:00 07/14/22 11:10 Vitamin Tablet PO 1 tab DAILY LASHAY Administration Thiamine HCl 100 mg 07/14/22 10:00 07/14/22 11:10 Thiamine 100 Mg Tablet PO 100 mg DAILY LASHAY Administration - Physical Exam Wound/Incisions: positive: Healing well, Dressing dry and intact General Appearance: positive: No acute distress, Alert Eyes Bilateral: positive: PERRL, EOMI ENT: positive: Pharynx nml, No signs of dehydration Neck: positive: Trachea midline Respiratory: positive: Chest non-tender, No respiratory distress, Breath sounds nml Cardiovascular: positive: Regular rate & rhythm, No murmur Abdomen: positive: Tenderness (mild, diffuse and appropriate incisional ttp), Other (AMBIKA with serous, cloudy output). negative: No distention (mild (much softer than yesterday)), Guarding, Rebound Skin: positive: No rash, Warm, Dry Extremities: positive: Non-tender, Full ROM Neurologic/Psychiatric: positive: Oriented x3 Impression/Plan - Problem List Problem List: 41 y/o M with: 1. perforated appendicitis - s/p lap appy and abd washout 07/12/22, POD#3; on zosyn IV q6h (transition to PO abx when tolerating diet). Leukocytosis due to infectious process and stress response to surgery, AM lab pending - high AMBIKA output expected due to irrigation at the time of surgery. Continue to follow. Keep drain. - Delayed return of bowel function as expected given the extent of infection/ inflammation noted at the time of surgery. Encouraged increased activity today. - will continue zofran, reglan for nausea, no vomiting since yesterday AM. I expect this is due to delayed return of bowel function. If not controlled with meds, patient may require NG tube. Continue clears sparingly, will adat when bowel function improves. - following electrolytes, AM lab pending - plan to discharge to home when able to tolerate diet - patient will need to f/u with Dr. Jeffers in clinic two weeks after surgery. 2. urinary retention, resolved - due to inflammation in perivesicular location - tapia removed yesterday AM, voiding well 3. EtOH use disorder - patient drinks at least 6 beers/day, patient/family endorse some tremors when he's stopped in the past - CIWA initiated 07/14, not requiring medication 4. HTN, slowly improving - likely contributions from discomfort and possible alcohol withdrawal. Continue to follow. Patient agrees with plan of care, questions answered.
[2022-07-15 06:23] LABS: HCT - HEMATOCRIT 45.3 % (42.0-52.0); HGB - HEMOGLOBIN 15.6 g/dL (14.0-18.0); MEAN CORPUSCULAR HEMOGLOBIN 33.9 pg (27.0-31.0); MEAN CORPUSCULAR HGB CONC 34.4 g/dL (32.0-36.0); MEAN CORPUSCULAR VOLUME 98.5 fL (80.0-94.0); MEAN PLATELET VOLUME 10.7 fL (7.4-11.4); RED BLOOD COUNT 4.6 10^6/uL (4.70-6.10); RED CELL DISTRIBUTION WIDTH 11.9 % (12.0-15.0); WHITE BLOOD COUNT 10.4 x10^3/uL (4.8-10.8)
[2022-07-15 06:35] LABS: ALBUMIN 3.1 g/dL (3.2-5.5); ALBUMIN/GLOBULIN RATIO 0.9 (1.0-2.2); CALCIUM 8.5 mg/dL (8.5-10.3); CREATININE 0.9 mg/dL (0.6-1.2); POTASSIUM 4.2 mmol/L (3.5-5.0); TOTAL PROTEIN 6.4 g/dL (6.7-8.2)
[2022-07-15] MEDS: ONDANSETRON 4 MG/2 ML VIAL IVP PRN (06:42)
[2022-07-15] MEDS: SODIUM CHLORIDE 0.9% 1,000 ML IV SCH (06:42)
[2022-07-15] MEDS: KETOROLAC 15 MG/ML VIAL IVP PRN (09:15)
[2022-07-15] MEDS: PRENATAL VITAMIN TABLET PO SCH (09:15)
[2022-07-15] MEDS: THIAMINE 100 MG TABLET PO SCH (09:15)
[2022-07-15] MEDS: MULTIVITAMIN 10 ML, THIAMINE INJ 100 MG, FOLIC ACID INJ 1 MG in SODIUM CHLORIDE 0.9% 1,... IV SCH (11:35)
[2022-07-16] MEDS: PIPERACILLIN/TAZOBACTAM 3.375 GM in SODIUM CHLORIDE 0.9% MINIBAG 100 ML IV SCH ×2 (01:40→08:04)
[2022-07-16] MEDS: SODIUM CHLORIDE 0.9% 1,000 ML IV SCH ×2 (03:14→07:28)
[2022-07-16] MEDS: PRENATAL VITAMIN TABLET PO SCH (08:08)
[2022-07-16] MEDS: THIAMINE 100 MG TABLET PO SCH (08:08)
[2022-07-16 08:10] VITALS: BP 146/96
--- NOTE | 2022-07-16 08:42 | Discharge Plan ---
Discharge Plan Problem Reviewed?: Yes Disposition: Home, Self Care Condition: Good Prescriptions: Amox/Clav 875/125 [Augmentin 875/125 Tab] 1 tablet PO Q12H 5 Days #10 tablet HYDROcod/ACETAM 5/325 [[place] 5/325] 1 each PO Q6H PRN #20 tablet PRN Reason: Pain Diet: Regular Activity Restrictions: No Restrictions Shower Restrictions: No Driving Restrictions: Yes (not on pain pills) Health Concerns: recent appendicitis with pus in abdomen Plan of Treatment: appendectomy, iv antibiotics, tapia catheter, drain Assessment: doing well postop day 4 appendectomy for appendicitis with purulent peritonitis urinary retention and ileus resolved Additional Instructions or Follow Up instructions: call the surgery office for fever over 101, incision area redness, nausea and vomiting. please call the office to make an appointment for drain removal this or friday [phone] No Smoking: If you smoke, Please STOP! Call for help. Follow-up with: Benedict Jeffers MD [Provider Admit Priv/Credential] -
--- NOTE | 2022-07-16 08:48 | DISCHARGE SUMMARY ---
"Discharge Summary Admit Date: 07/12/22 Discharge Date: 07/16/22 Discharging Provider: jo-ann morrell Code Status: Attempt Resuscitation Discharge Facility Name: [facility] - DIAGNOSES Admission Diagnoses: appendicitis with diffuse peritonitis Discharge Diagnoses with Status of Each Condition: appendicitis with purulent peritonitis postop ileus and urinary retention doing very well postop day 4. home with drain - HPI History of Present Illness: present with 36 hour history abdominal pain and nausea/ vomiting had diffuse peritonitis on exam. ct ruptured appendix and free fluid - CONSULTS | PROCEDURES Procedures: laparoscopic appendectomy with drain placement tapia placement for urinary retention. home in good condition postop day 4. urinary retention and ileus resolved. - HOSPITAL COURSE Hospital Course: as above - ALLERGIES Allergies/Adverse Reactions: Allergies Allergy/AdvReac Type Severity Reaction Status Date / Time No Known Drug Allergies Allergy Verified 07/12/22 17:54 - MEDICATIONS Home Medications: Ambulatory Orders Medication Instructions Recorded Confirmed Amox/Clav 875/125 [Augmentin 1 tablet PO Q12H 5 Days #10 tablet 07/16/22 875/125 Tab] HYDROcod/ACETAM 5/325 [[place] 5/325] 1 each PO Q6H PRN #20 tablet 07/16/22 - PHYSICAL EXAM AT DISCHARGE General Appearance: positive: No acute distress, Alert Eyes Bilateral: positive: PERRL, EOMI, No scleral icterus ENT: positive: No signs of dehydration Neck: positive: No JVD, Trachea midline Respiratory: positive: No respiratory distress Abdomen: positive: Non-tender, No distention, Other (drain slightly cloudy) Neurologic/Psychiatric: positive: Oriented x3 - LABS Result Diagrams: 07/15/22 06:11 07/15/22 06:11 - FOLLOW UP Follow Up: surgery office please call to make an appointment for of friday to have your drain removed [phone]"
== END 2022-07-16 11:35 | disposition home or self-care (01) | DRG 342 ==
LOC: ED 17:22 → MS3 20:30 → SDS 20:30 → MS3 07-13 22:59 → MS2 07-15 17:30
PROVIDERS: ADMIT Surgery; ATTEND Surgery
PROC: 0DTJ4ZZ Resection of Appendix, Percutaneous Endoscopic Approach (ICD-10-PCS; principal; 2022-07-12 21:00)
DX: K35.20 Acute appendicitis with generalized peritonitis, without abscess (principal); F10.99 Alcohol use, unspecified with unspecified alcohol-induced disorder; K56.7 Ileus, unspecified; R33.9 Retention of urine, unspecified; I10 Essential (primary) hypertension; Z20.822 Contact with and (suspected) exposure to COVID-19
CPT/HCPCS: 36415; 44970; 74177; 80048; 80053; 81003; 83690; 83735; 84100; 85025; 85027; 87635; 96365; 96375; 99284; 99285; A9270; J1170; J2765; J3411; J7120; J8499; Q9967; 81001; 87086

== ENCOUNTER 2022-07-31 08:09 | Emergency (ER) | payer SELFPAY ==
[2022-07-31 08:21] VITALS: BP 114/76
--- NOTE | 2022-07-31 08:48 | ED Physician Documentation ---
PD HPI WOUND RECHECK - Stated complaint Stated Complaint: SIDE PX - Chief complaint Chief Complaint: Wound - Histroy obtained from History obtained from: Patient, Other (per diem interpreter) - Additional information Additional information: Patient is a 41-year-old male with a recent history of a perforated appendicitis presenting to the emergency department requesting a return to work note. He was admitted to the hospital on July 12 and had a laparoscopic appendectomy by Dr. Jeffers. He was discharged home on July 16 with a drain still in place. He did follow-up with the surgery office approximately 1 week ago and reports he saw a nurse and had the drain removed. He did not remember to ask about work clearance. 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 He has not had fevers, is not taking any medications for pain.He denies any abnormal drainage at surgical sites. He reports sometimes when he is lifting something he notes a little more discomfort at his surgical sites. per diem interpreter was used for all communications. Review of Systems Constitutional: denies: Fever Cardiac: denies: Chest pain / pressure Respiratory: denies: Dyspnea GI: denies: Abdominal Pain, Vomiting PD PAST MEDICAL HISTORY - Past Medical History Cardiovascular: None Respiratory: None Neuro: None Endocrine/Autoimmune: None GI: None : None Psych: None Musculoskeletal: None Derm: None - Past Surgical History Past Surgical History: No - Present Medications Home Medications: Ambulatory Orders Medication Instructions Recorded Confirmed No Known Home Medications 07/31/22 07/31/22 - Allergies Allergies/Adverse Reactions: Allergies Allergy/AdvReac Type Severity Reaction Status Date / Time No Known Drug Allergies Allergy Verified 07/31/22 08:21 - Social History Does the pt smoke?: No Smoking Status: Never smoker Does the pt drink ETOH?: Yes Does the pt have substance abuse?: No - Immunizations Immunizations are current?: No PD ED PE NORMAL - General General: Alert and oriented X 3, No acute distress, Well developed/nourished - HEENT HEENT: Atraumatic - Neck Neck: Supple, no meningeal sign - Cardiac Cardiac: RRR - Respiratory Respiratory: No respiratory distress, Clear bilaterally - Abdomen Abdomen: Normal bowel sounds, Soft, Non tender, Non distended, Other (2 well- healing laparoscopic incision sites with no signs of dehiscence. There is no surrounding erythema, abnormal drainage, tenderness) - Derm Derm: Warm and dry Results - Vitals Vitals: Vital Signs - 24 hr 07/31/22 08:13 Temperature 35.9 C L Heart Rate 56 L Respiratory 16 Rate Blood Pressure 114/76 O2 Saturation 100 Oxygen O2 Source Room air PD Medical Decision Making - ED course Complexity details: d/w patient, d/w family ED course: 830 - Reviewed the case with Dr. Brewer. She also looked at the patient's chart.She states that patient can return to duty at work with no restrictions as it has been 2 weeks since his surgery And he is not requiring anything for pain. She will also have her office call to get the patient a follow-up appointment with Dr. Jeffers. Patient presenting for evaluation post laparoscopic appendectomy and requesting return to work note. His vital signs are stable. Labs were consisdered but his abdominal exam is benign with no signs of wound infection or intra-abdominal infection or complication. I did review the case with Dr. Brewer (covering for Dr. Jeffers, also saw him while hospitalized) who has stated he can return to work without any restrictions.Patient was also made aware of a follow-up nicole ointment the office is scheduled for August 14. He is advised on concerning symptoms to return for. A per diem interpreter was used for all communications. Departure - Departure Disposition: 01 Home, Self Care Clinical Impression: Visit for wound check, Return to work evaluation Condition: Stable Instructions: ED Wound Check Post Op No Infec Follow-Up: Benedict Jeffers MD [Provider Admit Priv/Credential] - Comments: We spoke to the surgeon's office today and they have cleared you to return to work. If you have any new symptoms or concerns please consider return to the emergency department or follow-up with your surgeon. You also have a follow-up appointment with Dr. Jeffers on August 14 at 1:15 in the afternoon. Please make sure to keep this appointment. Forms: Activity restrictions Discharge Date/Time: 07/31/22 08:59
== END 2022-07-31 08:59 | disposition home or self-care (01) ==
LOC: ED 08:09
DX: Z48.89 Encounter for other specified surgical aftercare (principal); Z98.890 Other specified postprocedural states
CPT/HCPCS: 99281; 99282